=== PATIENT | male | born 1990 | race Two or more races ===

== ENCOUNTER 2017-07-15 10:33 | Emergency (ER) | payer OTHER ==
[2017-07-15 10:38] VITALS: BP 138/78; PULSE 56; TEMP 97.3; BMI 26.4
[2017-07-15] MEDS ORDERED: IBUPROFEN 400 MG TABLET (FP) PO ONE ×2 (12:12→12:21)
--- NOTE | 2017-07-15 12:21 | PDOC ---
History of Present Illness - General Chief Complaint: Injury Stated Complaint: INJURY Time Seen by Provider: 07/15/17 11:36 History Source: Patient - History of Present Illness Occurred: reports: this morning Lower Extremity Pain Location: right: 1st toe Method of Injury: Yes: twisted Past History - Past Medical History Allergies/Adverse Reactions: Allergies Allergy/AdvReac Type Severity Reaction Status Date / Time No Known Allergies Allergy Verified 07/15/17 10:35 Home Medications: Ambulatory Orders NK [No Known Home Medication] 07/15/17 Other medical history: none - Psycho/Social/Smoking Cessation Hx Anxiety: No Suicidal Ideation: No Smoking History: Never smoked Information on smoking cessation initiated: No Hx Alcohol Use: No Drug/Substance Use Hx: No Substance Use Type: None Review of Systems - Review of Systems Musculoskeletal: Yes: Joint Pain, Joint Swelling *Physical Exam - Vital Signs Last Vital Signs Temp Pulse Resp BP Pulse Ox 97.3 F L 56 L 18 138/78 100 07/15/17 10:36 07/15/17 10:36 07/15/17 10:36 07/15/17 10:36 07/15/17 10:36 - Physical Exam General Appearance: Yes: Appropriately Dressed. No: Apparent Distress HEENT: positive: Normal Voice Neck: positive: Supple Respiratory/Chest: negative: Respiratory Distress Extremity: positive: Other (+tto to R 1st MCP J and volar apect of R 1st metacarpal, no sig swelling, no snuffbox ttp) Integumentary: positive: Dry, Warm Neurologic: positive: Fully Oriented, Alert, Normal Mood/Affect ED Treatment Course - RADIOLOGY Radiology Studies Ordered: Category Date Time Status HAND- RIGHT [RAD] Stat Radiology 07/15/17 12:11 Ordered Medical Decision Making - Medical Decision Making 07/15/17 12:17 26 yo M, no sig hx, here w/ R thumb injury. Pt works for [employer] and states while at work this am, he grabbed a hold of a pole at work and states he hyperextended thumb and has had pain to site w/ movement since. Has not taken anything for pain See exam R thumb sprain -XR r/o fx -pain control 07/15/17 12:38 XR neg for fx. Dc w/ supportive treatment *DC/Admit/Observation/Transfer Diagnosis at time of Disposition: Thumb sprain Qualifiers: Encounter type: initial encounter Sprain of finger site: unspecified site Laterality: right Qualified Code(s): S63.601A - Unspecified sprain of right thumb, initial encounter - Discharge Dispostion Disposition: HOME Condition at time of disposition: Good - Patient Instructions Printed Discharge Instructions: Finger Sprain Additional Instructions: Your XR was negative for fracture. Take motrin as needed for pain as needed and you can purchase an over the counter thumb spica for comfort until pain subsides - Post Discharge Activity Work/School Note: Back to Work
== END 2017-07-15 12:55 | disposition home or self-care (01) ==
LOC: JERFT 10:33
DX: S63.621A Sprain of interphalangeal joint of right thumb, initial encounter (principal); X50.0XXA Overexertion from strenuous movement or load, initial encounter; Y93.89 Activity, other specified; Y92.69 Other specified industrial and construction area as the place of occurrence of the external cause; Y99.0 Civilian activity done for income or pay
CPT/HCPCS: 73130-TC-RT; 99281-25